=== PATIENT | female | born 1940 | race Caucasian/White ===

== ENCOUNTER → 2016-06-14 | Outpatient (CLI) | payer MEDICARE, OTHER ==
[~2016-06-14] MED LIST: ASCO250T13 PO; BIOT5TAB3 PO; CHOL100083 OR; CLON0.1T PO; CLON0.5T PO; CYANLIQ IJ; DICY20TA64 PO; DULO30CA PO; FOLITAB45 PO; LEVO200I5 IV; MAGNTAB23 PO; PERCOT GT; POTA25TA23 PO; TIZA4TAB3 PO; VITA80009 PO
== END | disposition home or self-care (01) ==
LOC: Rad HDHVI 09:25
PROVIDERS: ATTEND Internal Medicine Cardiovascular Disease
DX: I10 Essential (primary) hypertension (principal)
CPT/HCPCS: 93306; 93926

== ENCOUNTER → 2016-07-04 | Outpatient (CLI) | payer MEDICARE, OTHER | END | disposition home or self-care (01) | LOC: Rad HDHVI 12:05 | PROVIDERS: ATTEND Internal Medicine Cardiovascular Disease | DX: M16.0 Bilateral primary osteoarthritis of hip (principal); M85.88 Other specified disorders of bone density and structure, other site ==

== ENCOUNTER → 2016-09-06 | Outpatient (CLI) | payer MEDICARE, OTHER ==
[2016-09-06 16:21] LABS: BUN/Creatinine Ratio 24.7; Calcium 8.9 mg/dL (8.5-10.1); Potassium 5.2 mmol/L (3.5-5.1)
== END | disposition home or self-care (01) ==
LOC: LAB 10:36
PROVIDERS: ATTEND Internal Medicine Cardiovascular Disease
DX: I10 Essential (primary) hypertension (principal); E83.42 Hypomagnesemia; M10.9 Gout, unspecified
CPT/HCPCS: 36415; 80048; 83735; 84550

== ENCOUNTER → 2016-09-12 | Outpatient (CLI) | payer MEDICARE, OTHER ==
[2016-09-12 09:50] VITALS: BP 128/84
[2016-09-12 10:20] VITALS: BP 103/66
== END | disposition home or self-care (01) ==
LOC: CHF HDHVI 09:54
PROVIDERS: ATTEND Internal Medicine Cardiovascular Disease
DX: M81.0 Age-related osteoporosis without current pathological fracture (principal)
CPT/HCPCS: 96372; G0463

== ENCOUNTER → 2016-09-14 | Outpatient (CLI) | payer MEDICARE ==
[~2016-09-14] VITALS: Ht 157.5 cm; Wt 52.6 kg
[~2016-09-14] MED LIST changes: +ADENOSINE IV STA; +GIVE UN DILUTED IV STA
== END | disposition home or self-care (01) ==
LOC: HDHVI->DVH 08:14
PROVIDERS: ATTEND Internal Medicine Cardiovascular Disease
DX: R07.9 Chest pain, unspecified (principal); I10 Essential (primary) hypertension; F17.210 Nicotine dependence, cigarettes, uncomplicated; Z82.49 Family history of ischemic heart disease and other diseases of the circulatory system
CPT/HCPCS: 78452; 93005; 96374; 96375; A9500; J0153

== ENCOUNTER → 2016-10-24 | Outpatient (CLI) | payer MEDICARE ==
[~2016-10-24] MED LIST changes: -ADENOSINE IV STA; -GIVE UN DILUTED IV STA
[2016-10-24 12:44] LABS: BUN/Creatinine Ratio 18.3; Calcium 8.1 mg/dL (8.5-10.1); Magnesium 2.8 mg/dL (1.6-2.6); Uric Acid 3.5 mg/dL (2.6-6.0)
[2016-10-24 17:28] LABS: BUN/Creatinine Ratio 21.8; Calcium 7.9 mg/dL (8.5-10.1); Magnesium 2.7 mg/dL (1.6-2.6); Potassium 4.9 mmol/L (3.5-5.1)
== END | disposition home or self-care (01) ==
LOC: LAB 09:11
PROVIDERS: ATTEND Internal Medicine Cardiovascular Disease
DX: I10 Essential (primary) hypertension (principal); E83.42 Hypomagnesemia; M10.9 Gout, unspecified
CPT/HCPCS: 36415; 80048; 83735; 84550

== ENCOUNTER → 2016-11-06 | Outpatient (CLI) | payer MEDICARE ==
[~2016-11-06] MED LIST changes: +DICY20TA38 PO; -DICY20TA64 PO
[2016-11-06 13:12] LABS: BUN/Creatinine Ratio 25.4; Calcium 8.7 mg/dL (8.5-10.1); Magnesium 2.5 mg/dL (1.6-2.6); Potassium 3.9 mmol/L (3.5-5.1)
== END | disposition home or self-care (01) ==
LOC: LAB 10:11
PROVIDERS: ATTEND Internal Medicine Cardiovascular Disease
DX: I10 Essential (primary) hypertension (principal); E83.42 Hypomagnesemia
CPT/HCPCS: 36415; 80048; 83735

== ENCOUNTER → 2016-11-21 | Outpatient (CLI) | payer MEDICARE | END | disposition home or self-care (01) | LOC: LAB 14:51 | PROVIDERS: ATTEND Internal Medicine Cardiovascular Disease | DX: E46 Unspecified protein-calorie malnutrition (principal) | CPT/HCPCS: 36415; 82040 ==

== ENCOUNTER 2017-01-20 22:17 | Inpatient (IN) | payer MEDICARE ==
[~2017-01-20] VITALS: Ht 170.2 cm; Wt 60.5 kg
[~2017-01-20 22:17] MED LIST changes: +ALLO300T2 PO; -ASCO250T13 PO; -BIOT5TAB3 PO; -CHOL100083 OR; -CLON0.1T PO; +COLCPOW2 PO; -CYANLIQ IJ; +ESCI10TA53 PO; -FOLITAB45 PO; +FURO20TA3 PO; +LISI2.5T47 PO; -MAGNTAB23 PO; +OLAN5TAB30 PO; +PANT40TA2 PO; +RANI150C11 PO; -VITA80009 PO
[2017-01-21 00:52] LABS: Basophils # (auto) 0 uL; Basophils % (auto) 0.1 % (0.0-2.0); DEFINITIVE SEE PRINTOUT; Eosinophils # (auto) 0 uL; Hematocrit 34.6 % (36.0-46.0); Hemoglobin 11.2 g/dL (12.2-16.2); Lymphocytes # (auto) 1.5 uL; Lymphocytes % (auto) 5.3 % (10.0-50.0); Mean Corpuscular Hemoglobin 33.5 pg (28.0-32.0); Mean Corpuscular Hgb Conc. 32.3 g/dL (32.0-36.0); Mean Corpuscular Volume 103.9 fL (80.0-100.0); Mean Platelet Volume 6.9 fL (7.4-10.4); Monocytes # (auto) 0.4 uL; Monocytes % (auto) 1.4 % (0.0-12.0); Neutrophils # (auto) 25.8 uL; Neutrophils % (auto) 93.2 % (37.0-80.0); Platelet Count (auto) 277 10^3/uL (140-450); Red Cell Distribution Width 13.1 % (11.6-16.0); SUSPECT SEE PRINTOUT; White Blood Cell 27.7 10^3/uL (4.4-10.8)
[2017-01-21 01:07] LABS: Albumin 3.1 g/dL (3.4-5.0); BUN/Creatinine Ratio 14.8; Calcium 8.1 mg/dL (8.5-10.1); INR 1.1 (0.9-1.15); Magnesium 1.9 mg/dL (1.6-2.6); Partial Thromboplastin Time 28.6 sec (22.64-33.71); Potassium 3.9 mmol/L (3.5-5.1)
[2017-01-21 01:14] LABS: Bilirubin, Total 0.4 mg/dL (0.2-1.0); Total Protein 6.4 g/dL (6.4-8.2)
[2017-01-21] MEDS ORDERED: SODIUM CHLORIDE 0.9% 1,000 ML IV ONE ×2 (03:30→03:45)
[2017-01-21] MEDS ORDERED: IOHEXOL 300 MG/ML 100ML BOTTLE IJ ONE (03:43)
[2017-01-21] MEDS ORDERED: VANCOMYCIN 1GM/250ML D5W 250 ML IV ONE (03:45)
[2017-01-21] MEDS ORDERED: PIPERACILLIN-TAZOB 3.375GM 100 ML IV ONE (03:45)
[2017-01-21 04:14] LABS: Urine Bilirubin Negative (Negative); Urine Blood Negative /uL (Negative); Urine Color Yellow (Yellow); Urine Glucose Normal (Normal); Urine Hyaline Cast FEW /lpf (0 - 2); Urine Ketone Negative (Negative); Urine Mucus FEW (None Seen); Urine Nitrite Negative (Negative); Urine RBC 4 /hpf (0 - 4); Urine Urobilinogen Normal (Negative); Urine pH 6.5 (5.0-8.0)
[2017-01-21] MEDS ORDERED: LORazepam 2MG/ML-1ML VIAL ONE (04:41)
[2017-01-21] MEDS ORDERED: NITROGLYCERIN 0.4 MG SL TAB SL PRN (05:00)
[2017-01-21] MEDS ORDERED: VANCOMYCIN PER PHARMACY 0 MG IV SCH (05:00)
[2017-01-21] MEDS ORDERED: MORPHINE SULF INJ 2 MG/ML SYRINGE 1ML IV PRN ×2 (05:00→06:15)
[2017-01-21] MEDS ORDERED: LORazepam 2MG/ML-1ML VIAL IV ONE (05:15)
[2017-01-21] MEDS ORDERED: ONDANSETRON HCL 4 MG/2 ML VIAL IV PRN (06:15)
[2017-01-21] MEDS ORDERED: diphenhdrAMINE HCL 50 MG/1 ML VL IV ONE (06:15)
[2017-01-21 06:49] LABS: Temperature: 21.8 C (20.0-25.0)
[2017-01-21] MEDS: LEVOTHYROXINE SODIUM 25 MCG TAB PO SCH (07:53)
[2017-01-21] MEDS: PANTOPRAZOLE 40 MG TAB PO SCH (10:09)
[2017-01-21] MEDS: PIPERACILLIN-TAZOB 3.375GM 100 ML IV SCH ×3 (12:13→23:32)
[2017-01-21] MEDS ORDERED: ALBU2TAB4 PO (14:31)
[2017-01-21] MEDS ORDERED: ACET5SOL5 PO (14:31)
[2017-01-21] MEDS ORDERED: METO25TA5 PO (14:31)
[2017-01-21] MEDS ORDERED: MAGN400S25 PO (14:31)
[2017-01-21] MEDS ORDERED: PRE5T PO (14:31)
[2017-01-21] MEDS: VANCOMYCIN 1GM/250ML D5W 250 ML IV SCH (17:09)
[2017-01-21] MEDS: LORazepam 2MG/ML-1ML VIAL IV PRN ×3 (17:22→21:29)
[2017-01-21] MEDS ORDERED: FUROSEMIDE 20 MG TAB PO SCH (18:00)
[2017-01-21] MEDS ORDERED: ACETAMINOPHEN 650 MG RECT SUPP PR ONE ×2 (19:45→19:56)
[2017-01-21] MEDS: SODIUM CHLORIDE 0.9% 1,000 ML IV SCH (21:05)
[2017-01-22] MEDS: VANCOMYCIN 1GM/250ML D5W 250 ML IV SCH ×2 (04:36→16:54)
[2017-01-22 06:21] LABS: Basophils # (auto) 0 uL; Basophils % (auto) 0.1 % (0.0-2.0); CONDITION Y; DEFINITIVE SEE PRINTOUT; Eosinophils # (auto) 0.7 uL; Eosinophils % (auto) 5.1 % (0.0-7.0); Hematocrit 31.4 % (36.0-46.0); Hemoglobin 10.4 g/dL (12.2-16.2); Mean Corpuscular Hemoglobin 34.5 pg (28.0-32.0); Mean Corpuscular Hgb Conc. 33.3 g/dL (32.0-36.0); Mean Corpuscular Volume 103.6 fL (80.0-100.0); Mean Platelet Volume 6.8 fL (7.4-10.4); Monocytes # (auto) 0.3 uL; Monocytes % (auto) 2.1 % (0.0-12.0); Neutrophils # (auto) 12.4 uL; Neutrophils % (auto) 85.7 % (37.0-80.0); Platelet Count (auto) 271 10^3/uL (140-450); Red Cell Distribution Width 14.2 % (11.6-16.0); White Blood Cell 14.4 10^3/uL (4.4-10.8)
[2017-01-22] MEDS: PIPERACILLIN-TAZOB 3.375GM 100 ML IV SCH ×3 (06:30→18:13)
[2017-01-22] MEDS: LEVOTHYROXINE SODIUM 25 MCG TAB PO SCH (06:49)
[2017-01-22 06:51] LABS: Albumin 2.2 g/dL (3.4-5.0); BUN/Creatinine Ratio 10.3; Bilirubin, Total 0.4 mg/dL (0.2-1.0); Calcium 7.3 mg/dL (8.5-10.1); Total Protein 5.3 g/dL (6.4-8.2)
[2017-01-22] MEDS: SODIUM CHLORIDE 0.9% 1,000 ML IV SCH (07:50)
[2017-01-22] MEDS: PANTOPRAZOLE 40 MG TAB PO SCH (11:03)
[2017-01-22 20:00] VITALS: BP 144/69
[2017-01-22] MEDS: HYDROcodone-ACET 5/325MG TAB PO PRN (20:10)
[2017-01-22 22:00] VITALS: BP 144/69
[2017-01-23] MEDS: SODIUM CHLORIDE 0.9% 1,000 ML IV SCH ×2 (00:42→14:55)
[2017-01-23] MEDS: PIPERACILLIN-TAZOB 3.375GM 100 ML IV SCH ×4 (00:42→18:27)
[2017-01-23] MEDS: HYDROcodone-ACET 5/325MG TAB PO PRN ×4 (02:16→21:59)
[2017-01-23] MEDS: LEVOTHYROXINE SODIUM 25 MCG TAB PO SCH (05:56)
[2017-01-23 06:18] LABS: Basophils # (auto) 0 uL; Basophils % (auto) 0.1 % (0.0-2.0); CONDITION Y; DEFINITIVE SEE PRINTOUT; Eosinophils # (auto) 1.6 uL; Hematocrit 31.4 % (36.0-46.0); Hemoglobin 10.4 g/dL (12.2-16.2); Lymphocytes # (auto) 1.1 uL; Lymphocytes % (auto) 8.9 % (10.0-50.0); Mean Corpuscular Hemoglobin 34.1 pg (28.0-32.0); Mean Corpuscular Hgb Conc. 33.3 g/dL (32.0-36.0); Mean Corpuscular Volume 102.3 fL (80.0-100.0); Mean Platelet Volume 7.7 fL (7.4-10.4); Monocytes # (auto) 0.4 uL; Monocytes % (auto) 2.9 % (0.0-12.0); Neutrophils # (auto) 9.3 uL; Neutrophils % (auto) 75.1 % (37.0-80.0); Platelet Count (auto) 257 10^3/uL (140-450); Red Cell Distribution Width 14.4 % (11.6-16.0); White Blood Cell 12.4 10^3/uL (4.4-10.8)
[2017-01-23 06:39] LABS: Potassium 3.2 mmol/L (3.5-5.1)
[2017-01-23 06:42] LABS: Bilirubin, Total 0.4 mg/dL (0.2-1.0); Total Protein 4.9 g/dL (6.4-8.2)
[2017-01-23 08:00] VITALS: BP 135/72
[2017-01-23] MEDS: PANTOPRAZOLE 40 MG TAB PO SCH (10:16)
[2017-01-23 13:00] VITALS: BP 142/80
[2017-01-23] MEDS ORDERED: POTASSIUM CHL 20 Meq TABLET PO ONE (15:00)
[2017-01-23] MEDS ORDERED: CYANOCOBALAMIN (B-12) 1000 MCG/1 ML VIAL IM ONE (15:45)
[2017-01-23 17:00] VITALS: BP 154/78
[2017-01-23] MEDS: PRO-STAT 64 30ML PO SCH (18:27)
[2017-01-23] MEDS: BOOST PLUS 8 ounce PO SCH (18:27)
[2017-01-23 22:00] VITALS: BP 168/77
[2017-01-23] MEDS: clonazePAM 0.5 MG TAB PO PRN (22:33)
[2017-01-24] MEDS: PIPERACILLIN-TAZOB 3.375GM 100 ML IV SCH ×4 (00:15→17:21)
[2017-01-24] MEDS: HYDROcodone-ACET 5/325MG TAB PO PRN ×3 (05:35→17:52)
[2017-01-24 05:37] VITALS: BP 146/80
[2017-01-24 05:43] LABS: Basophils # (auto) 0 uL; Basophils % (auto) 0.1 % (0.0-2.0); CONDITION Y; DEFINITIVE SEE PRINTOUT; Eosinophils # (auto) 1.5 uL; Eosinophils % (auto) 11.7 % (0.0-7.0); Hematocrit 31.7 % (36.0-46.0); Hemoglobin 10.6 g/dL (12.2-16.2); Lymphocytes # (auto) 1.2 uL; Lymphocytes % (auto) 9.7 % (10.0-50.0); Mean Corpuscular Hemoglobin 33.8 pg (28.0-32.0); Mean Corpuscular Hgb Conc. 33.3 g/dL (32.0-36.0); Mean Corpuscular Volume 101.3 fL (80.0-100.0); Mean Platelet Volume 7.4 fL (7.4-10.4); Monocytes # (auto) 0.6 uL; Monocytes % (auto) 4.9 % (0.0-12.0); Neutrophils # (auto) 9.5 uL; Neutrophils % (auto) 73.6 % (37.0-80.0); Platelet Count (auto) 255 10^3/uL (140-450); Red Cell Distribution Width 14.2 % (11.6-16.0); White Blood Cell 12.9 10^3/uL (4.4-10.8)
[2017-01-24 05:57] LABS: Calcium 7.4 mg/dL (8.5-10.1); Magnesium 1.9 mg/dL (1.6-2.6); Potassium 3.2 mmol/L (3.5-5.1)
[2017-01-24] MEDS: LEVOTHYROXINE SODIUM 25 MCG TAB PO SCH (07:13)
[2017-01-24 08:00] VITALS: BP 157/79
[2017-01-24] MEDS: SODIUM CHLORIDE 0.9% 1,000 ML IV SCH (08:18)
[2017-01-24] MEDS: BOOST PLUS 8 ounce PO SCH ×3 (08:18→17:21)
[2017-01-24] MEDS: PRO-STAT 64 30ML PO SCH ×2 (08:18→17:21)
[2017-01-24 08:59] VITALS: BP 157/79
[2017-01-24] MEDS: CYANOCOBALAMIN 500 MCG TAB PO SCH (10:20)
[2017-01-24] MEDS: PANTOPRAZOLE 40 MG TAB PO SCH (10:20)
[2017-01-24] MEDS: clonazePAM 0.5 MG TAB PO PRN ×2 (10:26→21:49)
[2017-01-24] MEDS ORDERED: METOPROLOL TARTRATE 25 MG TAB PO ONE (11:30)
[2017-01-24] MEDS ORDERED: POTASSIUM CHL 20 Meq TABLET PO ONE (11:30)
[2017-01-24] MEDS ORDERED: MAGNESIUM SULFATE 1GM/100ML 100 ML IV ONE (11:30)
[2017-01-24 12:44] VITALS: BP 135/91
[2017-01-24] MEDS ORDERED: MULTIPLE VITAMINS W/ MINERALS TAB PO ONE (13:15)
[2017-01-24] MEDS ORDERED: ASCORBIC ACID 500 MG TAB PO ONE (13:15)
[2017-01-24 17:00] VITALS: BP 158/78
[2017-01-24] MEDS: METOPROLOL TARTRATE 25 MG TAB PO SCH (21:48)
[2017-01-24] MEDS: ASCORBIC ACID 500 MG TAB PO SCH (21:49)
[2017-01-24 22:00] VITALS: BP 157/76
[2017-01-25] MEDS: PIPERACILLIN-TAZOB 3.375GM 100 ML IV SCH ×2 (00:15→06:22)
[2017-01-25] MEDS: LORazepam 2MG/ML-1ML VIAL IV PRN (00:15)
[2017-01-25 05:30] VITALS: BP 133/78
[2017-01-25 05:43] LABS: Basophils # (auto) 0 uL; CONDITION Y; DEFINITIVE SEE PRINTOUT; Eosinophils # (auto) 1.8 uL; Eosinophils % (auto) 13.9 % (0.0-7.0); Hematocrit 32.7 % (36.0-46.0); Hemoglobin 10.7 g/dL (12.2-16.2); Lymphocytes # (auto) 1.8 uL; Lymphocytes % (auto) 14.1 % (10.0-50.0); Mean Corpuscular Hemoglobin 33.3 pg (28.0-32.0); Mean Corpuscular Hgb Conc. 32.7 g/dL (32.0-36.0); Mean Corpuscular Volume 101.9 fL (80.0-100.0); Mean Platelet Volume 7.4 fL (7.4-10.4); Monocytes # (auto) 0.6 uL; Monocytes % (auto) 4.8 % (0.0-12.0); Neutrophils # (auto) 8.8 uL; Neutrophils % (auto) 67.2 % (37.0-80.0); Platelet Count (auto) 357 10^3/uL (140-450); Red Cell Distribution Width 14.6 % (11.6-16.0); White Blood Cell 13.1 10^3/uL (4.4-10.8)
[2017-01-25 05:50] LABS: Magnesium 2.2 mg/dL (1.6-2.6)
[2017-01-25] MEDS: HYDROcodone-ACET 5/325MG TAB PO PRN ×3 (06:22→21:51)
[2017-01-25] MEDS: LEVOTHYROXINE SODIUM 25 MCG TAB PO SCH (06:23)
[2017-01-25] MEDS: BOOST PLUS 8 ounce PO SCH ×3 (07:47→17:47)
[2017-01-25] MEDS: PRO-STAT 64 30ML PO SCH ×2 (07:47→17:47)
[2017-01-25 09:00] VITALS: BP 149/86
[2017-01-25] MEDS: PANTOPRAZOLE 40 MG TAB PO SCH (09:39)
[2017-01-25] MEDS: CYANOCOBALAMIN 500 MCG TAB PO SCH (09:39)
[2017-01-25] MEDS: MULTIPLE VITAMINS W/ MINERALS TAB PO SCH (09:39)
[2017-01-25] MEDS: ASCORBIC ACID 500 MG TAB PO SCH ×2 (09:39→21:51)
[2017-01-25] MEDS: METOPROLOL TARTRATE 25 MG TAB PO SCH ×2 (09:40→21:50)
[2017-01-25] MEDS ORDERED: SACC250C PO (12:49)
[2017-01-25] MEDS ORDERED: CLIN1CAP4 PO (12:49)
[2017-01-25 13:00] VITALS: BP 155/92
[2017-01-25] MEDS: CLINDAMYCIN HCL 150 MG CAP PO SCH ×2 (13:41→21:50)
[2017-01-25] MEDS: clonazePAM 0.5 MG TAB PO PRN (16:52)
[2017-01-25 17:00] VITALS: BP 158/85
[2017-01-25] MEDS: ACETAMINOPHEN 500 MG TAB PO PRN (18:26)
[2017-01-25 20:00] VITALS: BP 168/76
[2017-01-25 22:11] VITALS: BP 168/76
[2017-01-26] VITALS (7 sets, daily range): BP systolic 124–184; BP diastolic 62–95
[2017-01-26] MEDS: clonazePAM 0.5 MG TAB PO PRN ×3 (02:38→21:46)
[2017-01-26] MEDS: HYDROcodone-ACET 5/325MG TAB PO PRN ×3 (06:27→23:16)
[2017-01-26] MEDS: LEVOTHYROXINE SODIUM 25 MCG TAB PO SCH (06:27)
[2017-01-26] MEDS: CLINDAMYCIN HCL 150 MG CAP PO SCH ×3 (06:27→21:44)
[2017-01-26] MEDS: BOOST PLUS 8 ounce PO SCH ×3 (08:00→18:00)
[2017-01-26] MEDS: PRO-STAT 64 30ML PO SCH ×2 (08:00→18:00)
[2017-01-26] MEDS: MULTIPLE VITAMINS W/ MINERALS TAB PO SCH (10:17)
[2017-01-26] MEDS: METOPROLOL TARTRATE 25 MG TAB PO SCH ×2 (10:17→21:45)
[2017-01-26] MEDS: PANTOPRAZOLE 40 MG TAB PO SCH (10:18)
[2017-01-26] MEDS: ASCORBIC ACID 500 MG TAB PO SCH ×2 (10:18→21:45)
[2017-01-26] MEDS: ACETAMINOPHEN 500 MG TAB PO PRN (12:58)
[2017-01-26] MEDS: CYANOCOBALAMIN 500 MCG TAB PO SCH (17:28)
[2017-01-26] MEDS: FLORASTOR (S. BOULARDII) 250 MG CAP PO SCH (17:28)
[2017-01-26] MEDS ORDERED: METOPROLOL TARTRATE 25 MG TAB PO ONE (18:15)
[2017-01-27 05:10] VITALS: BP 158/80
[2017-01-27] MEDS: LEVOTHYROXINE SODIUM 25 MCG TAB PO SCH (06:15)
[2017-01-27] MEDS: HYDROcodone-ACET 5/325MG TAB PO PRN (06:15)
[2017-01-27] MEDS: CLINDAMYCIN HCL 150 MG CAP PO SCH (06:15)
[2017-01-27 08:00] VITALS: BP 155/78
[2017-01-27] MEDS: BOOST PLUS 8 ounce PO SCH ×2 (08:00→12:00)
[2017-01-27] MEDS: PRO-STAT 64 30ML PO SCH (08:00)
[2017-01-27] MEDS: clonazePAM 0.5 MG TAB PO PRN (08:18)
[2017-01-27 08:24] VITALS: BP 155/78
[2017-01-27] MEDS: FLORASTOR (S. BOULARDII) 250 MG CAP PO SCH (10:30)
[2017-01-27] MEDS: PANTOPRAZOLE 40 MG TAB PO SCH (10:30)
[2017-01-27] MEDS: ASCORBIC ACID 500 MG TAB PO SCH (10:31)
[2017-01-27] MEDS: CYANOCOBALAMIN 500 MCG TAB PO SCH (10:32)
[2017-01-27] MEDS: MULTIPLE VITAMINS W/ MINERALS TAB PO SCH (10:32)
[2017-01-27] MEDS: METOPROLOL TARTRATE 25 MG TAB PO SCH (10:33)
[2017-01-27 12:30] VITALS: BP 166/90
== END 2017-01-27 13:45 | DRG 871 ==
LOC: ER 22:23 → TELE 22:24 → TELE-WESTW 01-22 18:33 → WEST WING 01-25 16:49
PROVIDERS: ADMIT Nurse Practitioner Family; ATTEND Internal Medicine
DX: A41.9 Sepsis, unspecified organism (principal); G92 Toxic encephalopathy; L03.115 Cellulitis of right lower limb; E88.09 Other disorders of plasma-protein metabolism, not elsewhere classified; D50.9 Iron deficiency anemia, unspecified; F17.210 Nicotine dependence, cigarettes, uncomplicated; I12.9 Hypertensive chronic kidney disease with stage 1 through stage 4 chronic kidney disease, or unspecified chronic kidney disease; G62.9 Polyneuropathy, unspecified; J44.9 Chronic obstructive pulmonary disease, unspecified; F32.9 Major depressive disorder, single episode, unspecified; K59.00 Constipation, unspecified; G47.00 Insomnia, unspecified; E03.9 Hypothyroidism, unspecified; E87.6 Hypokalemia; F41.9 Anxiety disorder, unspecified; G89.4 Chronic pain syndrome; N18.9 Chronic kidney disease, unspecified; M48.00 Spinal stenosis, site unspecified; Z79.899 Other long term (current) drug therapy; Z98.84 Bariatric surgery status; Z90.49 Acquired absence of other specified parts of digestive tract; Z90.710 Acquired absence of both cervix and uterus; Z87.01 Personal history of pneumonia (recurrent); Z71.3 Dietary counseling and surveillance
CPT/HCPCS: 36415; 51702; 70450; 71010; 74177; 80048; 80053; 80202; 81001; 82607; 82746; 82784; 82962; 83036; 83605; 83735; 83880; 84132; 84443; 84484; 85025; 85610; 85730; 86334; 87040; 87081; 87493; 94761; 95819; 96361; 96365; 96366; 96375; 97116; 97530; J2543

== ENCOUNTER → 2017-05-15 | Outpatient (CLI) | payer MEDICARE ==
[~2017-05-15] MED LIST changes: +ACET5SOL5 PO; +ALBU2TAB4 PO; +CLIN1CAP4 PO; +MAGN400S25 PO; +METO25TA5 PO; +PRE5T PO; +SACC250C PO
[2017-05-15 09:18] LABS: Basophils # (auto) 0 uL; Basophils % (auto) 0.1 % (0.0-2.0); Eosinophils # (auto) 0.2 uL; Eosinophils % (auto) 1.8 % (0.0-7.0); Hematocrit 39.2 % (36.0-46.0); Hemoglobin 12.8 g/dL (12.2-16.2); Lymphocytes # (auto) 1.8 uL; Lymphocytes % (auto) 17.3 % (10.0-50.0); Mean Corpuscular Hemoglobin 29.6 pg (28.0-32.0); Mean Corpuscular Hgb Conc. 32.6 g/dL (32.0-36.0); Mean Corpuscular Volume 90.7 fL (80.0-100.0); Mean Platelet Volume 6.6 fL (6.9-10.8); Monocytes # (auto) 0.5 uL; Monocytes % (auto) 4.9 % (0.0-12.0); Neutrophils # (auto) 7.7 uL; Neutrophils % (auto) 75.9 % (37.0-80.0); Platelet Count (auto) 376 10^3/uL (140-450); White Blood Cell 10.1 10^3/uL (4.4-10.8)
[2017-05-15 09:26] LABS: Urine Bilirubin Negative (Negative); Urine Blood Negative /uL (Negative); Urine Color Yellow (Yellow); Urine Glucose Normal (Normal); Urine Ketone Negative (Negative); Urine Nitrite Negative (Negative); Urine RBC <1 /hpf (0 - 4); Urine Squamous Epithelial Cell FEW /hpf (<5); Urine Urobilinogen Normal (Negative)
[2017-05-15 09:57] LABS: Albumin 3.4 g/dL (3.4-5.0); Bilirubin, Total 0.2 mg/dL (0.2-1.0); Calcium 9.7 mg/dL (8.5-10.1); Potassium 4.2 mmol/L (3.5-5.1); Total Protein 8.3 g/dL (6.4-8.2)
[2017-05-15 09:59] LABS: Temperature: 23.1 C (20.0-25.0)
== END | disposition home or self-care (01) ==
LOC: LAB 08:40
PROVIDERS: ATTEND Family Medicine
DX: I10 Essential (primary) hypertension (principal); E78.5 Hyperlipidemia, unspecified; E55.9 Vitamin D deficiency, unspecified
CPT/HCPCS: 36415; 80053; 80061; 81001; 82306; 82607; 82746; 85025

== ENCOUNTER → 2017-06-18 | Outpatient (CLI) | payer MEDICARE ==
[2017-06-18 13:21] LABS: INR 0.97 (0.9-1.15); Partial Thromboplastin Time 26.7 sec (22.64-33.71); Prothrombin Time 10.6 sec (9.37-12.3)
== END | disposition home or self-care (01) ==
LOC: LAB 12:41
PROVIDERS: ATTEND Family Medicine
DX: H35.60 Retinal hemorrhage, unspecified eye (principal)
CPT/HCPCS: 36415; 85610; 85730

== ENCOUNTER → 2018-03-04 | Outpatient (CLI) | payer MEDICARE ==
[2018-03-04 08:27] LABS: Basophils # (auto) 0 uL; Basophils % (auto) 0.3 % (0.0-2.0); Eosinophils # (auto) 0.2 uL; Eosinophils % (auto) 2.6 % (0.0-7.0); Hematocrit 40.5 % (36.0-46.0); Hemoglobin 13.7 g/dL (12.2-16.2); Lymphocytes # (auto) 1.9 uL; Lymphocytes % (auto) 27.9 % (10.0-50.0); Mean Corpuscular Hemoglobin 33.2 pg (28.0-32.0); Mean Corpuscular Hgb Conc. 33.8 g/dL (32.0-36.0); Monocytes # (auto) 0.5 uL; Monocytes % (auto) 7.1 % (0.0-12.0); Neutrophils # (auto) 4.2 uL; Neutrophils % (auto) 62.1 % (37.0-80.0); Nucleated Red Blood Cells % 0.1 %; Platelet Count (auto) 223 10^3/uL (140-450); Red Blood Cells 4.14 10^6/uL (4.0-5.20); Red Cell Distribution Width 13.6 % (11.8-14.3); White Blood Cell 6.8 10^3/uL (4.4-10.8)
[2018-03-04 08:34] LABS: Urine Bacteria NONE SEEN /hpf (None Seen); Urine Blood Negative /uL (Negative); Urine Specific Gravity 1.009 (1.001-1.035); Urine WBC <1 /hpf (0 - 5)
[2018-03-04 17:54] LABS: Calcium 8.5 mg/dL (8.5-10.1)
[2018-03-04 18:00] LABS: BUN/Creatinine Ratio 7.7; Total Protein 7.3 g/dL (6.4-8.2)
[2018-03-04 18:06] LABS: Bilirubin, Total 0.4 mg/dL (0.2-1.0)
== END | disposition home or self-care (01) ==
LOC: LAB 07:57
PROVIDERS: ATTEND Nurse Practitioner
DX: E78.5 Hyperlipidemia, unspecified (principal)
CPT/HCPCS: 36415; 80053; 80061; 81001; 82607; 84443; 85025

== ENCOUNTER → 2018-07-18 | Outpatient (CLI) | payer MEDICARE ==
[2018-07-18 09:21] LABS: Basophils # (auto) 0 uL; Basophils % (auto) 0.3 % (0.0-2.0); Eosinophils # (auto) 0.1 uL; Lymphocytes # (auto) 1.6 uL; Monocytes # (auto) 0.4 uL; Monocytes % (auto) 6.5 % (0.0-12.0)
[2018-07-18 09:23] LABS: Eosinophils % (auto) 1.8 % (0.0-7.0); Hematocrit 43.2 % (36.0-46.0); Hemoglobin 14.5 g/dL (12.2-16.2); Mean Corpuscular Hemoglobin 34.2 pg (28.0-32.0); Mean Corpuscular Hgb Conc. 33.6 g/dL (32.0-36.0); Mean Corpuscular Volume 101.8 fL (80.0-100.0); Neutrophils # (auto) 4.5 uL; Neutrophils % (auto) 67.4 % (37.0-80.0); Platelet Count (auto) 255 10^3/uL (140-450); Red Blood Cells 4.25 10^6/uL (4.0-5.20); Red Cell Distribution Width 14.3 % (11.8-14.3); White Blood Cell 6.7 10^3/uL (4.4-10.8)
[2018-07-18 09:24] LABS: Urine Bacteria NONE SEEN /hpf (None Seen); Urine Blood Negative /uL (Negative); Urine Specific Gravity 1.008 (1.001-1.035); Urine WBC 3 /hpf (0 - 5)
[2018-07-18 09:26] LABS: Potassium 4.4 mmol/L (3.5-5.1)
[2018-07-18 09:37] LABS: Albumin 4.4 g/dL (3.4-5.0); BUN/Creatinine Ratio 13.6; Bilirubin, Total 0.4 mg/dL (0.2-1.0); Calcium 9.6 mg/dL (8.5-10.1)
[2018-07-18 09:38] LABS: Uric Acid 4.2 mg/dL (2.6-6.0)
== END | disposition home or self-care (01) ==
LOC: LAB 08:27
PROVIDERS: ATTEND Nurse Practitioner
DX: E78.5 Hyperlipidemia, unspecified (principal); J44.9 Chronic obstructive pulmonary disease, unspecified; Z79.899 Other long term (current) drug therapy
CPT/HCPCS: 36415; 80053; 80061; 81001; 82306; 83036; 84443; 84550; 85025

== ENCOUNTER 2018-10-24 08:51 | Inpatient (IN) | payer MEDICARE, OTHER | END 2018-11-15 16:00 | disposition other institution (70) | LOC: ICU WEST 10-30 18:24 → DOU 11-05 13:31 → TELE-WESTW 11-12 20:34 → WEST WING 11-15 09:44 → TELE-EAST 10-27 10:38 → DOU IN ICU 11-05 13:33 → ER 08:51 → TELE-EAST 11:04 | PROC: 0BNL0ZZ Release Left Lung, Open Approach (ICD-10-PCS; principal; 2018-10-30 14:31) | PROC: 0W9B00Z Drainage of Left Pleural Cavity with Drainage Device, Open Approach (ICD-10-PCS; 2018-10-30 14:31) | PROC: 4A12XM4 Monitoring of Cardiac Stress, External Approach (ICD-10-PCS; 2018-10-30 14:31) | PROC: 3E033HZ Introduction of Radioactive Substance into Peripheral Vein, Percutaneous Approach (ICD-10-PCS; 2018-10-30 14:31) | PROC: 5A1945Z Respiratory Ventilation, 24-96 Consecutive Hours (ICD-10-PCS; 2018-10-30 14:31) | PROC: 0BH17EZ Insertion of Endotracheal Airway into Trachea, Via Natural or Artificial Opening (ICD-10-PCS; 2018-10-30 14:31) | PROC: 02HV33Z Insertion of Infusion Device into Superior Vena Cava, Percutaneous Approach (ICD-10-PCS; 2018-10-30 14:31) | PROC: 5A1945Z Respiratory Ventilation, 24-96 Consecutive Hours (ICD-10-PCS; 2018-10-30 14:31) | PROC: 0BH17EZ Insertion of Endotracheal Airway into Trachea, Via Natural or Artificial Opening (ICD-10-PCS; 2018-10-30 14:31) | PROC: 0BBL0ZZ Excision of Left Lung, Open Approach (ICD-10-PCS; 2018-10-30 14:31) | DX: A41.9 Sepsis, unspecified organism (principal); J18.9 Pneumonia, unspecified organism; N17.0 Acute kidney failure with tubular necrosis; J86.9 Pyothorax without fistula; J96.00 Acute respiratory failure, unspecified whether with hypoxia or hypercapnia; E46 Unspecified protein-calorie malnutrition; J90 Pleural effusion, not elsewhere classified; J44.0 Chronic obstructive pulmonary disease with (acute) lower respiratory infection; E87.1 Hypo-osmolality and hyponatremia; N39.0 Urinary tract infection, site not specified; E03.9 Hypothyroidism, unspecified; F32.9 Major depressive disorder, single episode, unspecified; F41.9 Anxiety disorder, unspecified; F03.90 Unspecified dementia, unspecified severity, without behavioral disturbance, psychotic disturbance, mood disturbance, and anxiety; I10 Essential (primary) hypertension; I20.9 Angina pectoris, unspecified; G89.4 Chronic pain syndrome; M48.061 Spinal stenosis, lumbar region without neurogenic claudication; M19.90 Unspecified osteoarthritis, unspecified site; M10.9 Gout, unspecified; J44.9 Chronic obstructive pulmonary disease, unspecified; J98.01 Acute bronchospasm; M54.16 Radiculopathy, lumbar region; D64.9 Anemia, unspecified; E87.6 Hypokalemia ==

== ENCOUNTER → 2019-03-13 | Outpatient (CLI) | payer MEDICARE, OTHER ==
[~2019-03-13] MED LIST changes: +ACET-1156 PO; -ACET5SOL5 PO; +ALBU0.084 NEB; +ALBU1AER4 IN; -ALBU2TAB4 PO; +CHOL20007 OR; +CITA-30 PO; -CLIN1CAP4 PO; +CYA100I PO; -DICY20TA38 PO; +DOCU100T15 PO; -DULO30CA PO; -ESCI10TA53 PO; -FURO20TA3 PO; +HYDR12.56 PO; +IBUP200C3 PO; +LACT10SO3 PO; -LEVO200I5 IV; -LISI2.5T47 PO; +MAGN200T9 PO; +MECL1TAB42 PO; -PANT40TA2 PO; -PERCOT GT; -POTA25TA23 PO; -PRE5T PO; -RANI150C11 PO; +RIS1T PO; -SACC250C PO; -TIZA4TAB3 PO; +VALE250C PO
[2019-03-13 10:55] LABS: Basophils # (auto) 0 uL; Basophils % (auto) 0.2 % (0.0-2.0); Eosinophils # (auto) 0.1 uL; Eosinophils % (auto) 1.3 % (0.0-7.0); Hematocrit 39.4 % (36.0-46.0); Hemoglobin 13.1 g/dL (12.2-16.2); Lymphocytes # (auto) 2.8 uL; Lymphocytes % (auto) 24.2 % (10.0-50.0); Mean Corpuscular Hemoglobin 32.6 pg (28.0-32.0); Mean Corpuscular Hgb Conc. 33.2 g/dL (32.0-36.0); Mean Corpuscular Volume 98.3 fL (80.0-100.0); Monocytes # (auto) 0.8 uL; Neutrophils # (auto) 7.7 uL; Neutrophils % (auto) 67.3 % (37.0-80.0); Platelet Count (auto) 277 10^3/uL (140-450); Red Blood Cells 4.01 10^6/uL (4.0-5.20); Red Cell Distribution Width 15.4 % (11.8-14.3); White Blood Cell 11.5 10^3/uL (4.4-10.8)
[2019-03-13 11:44] LABS: Albumin 3.9 g/dL (3.4-5.0); Calcium 9.1 mg/dL (8.5-10.1); Magnesium 2.2 mg/dL (1.6-2.6); Potassium 3.8 mmol/L (3.5-5.1)
[2019-03-13 11:47] LABS: BUN/Creatinine Ratio 20.9; Bilirubin, Total 0.2 mg/dL (0.2-1.0); Total Protein 7.9 g/dL (6.4-8.2)
== END | disposition home or self-care (01) ==
LOC: LAB 10:03
PROVIDERS: ATTEND Internal Medicine Rheumatology
DX: E03.9 Hypothyroidism, unspecified (principal); I12.9 Hypertensive chronic kidney disease with stage 1 through stage 4 chronic kidney disease, or unspecified chronic kidney disease; N18.3 Chronic kidney disease, stage 3 (moderate); M81.0 Age-related osteoporosis without current pathological fracture; E83.42 Hypomagnesemia
CPT/HCPCS: 36415; 80053; 83735; 83970; 84443; 85025

== ENCOUNTER → 2021-05-16 | Outpatient (CLI) | payer MEDICARE ==
[~2021-05-16] MED LIST changes: -CITA-30 PO; +CITA20TA9 PO; +OLAN1TAB7 PO; -OLAN5TAB30 PO
[2021-05-16 12:29] LABS: Bilirubin, Total 0.3 mg/dL (0.2-1.0); Potassium 4.4 mmol/L (3.5-5.1)
[2021-05-16 12:30] LABS: Albumin 3.8 g/dL (3.4-5.0)
== END | disposition home or self-care (01) ==
LOC: LAB 10:25
PROVIDERS: ATTEND Internal Medicine Rheumatology
DX: M81.0 Age-related osteoporosis without current pathological fracture (principal); N18.30 Chronic kidney disease, stage 3 unspecified
CPT/HCPCS: 36415; 80053

== ENCOUNTER → 2021-06-09 | Outpatient (CLI) | payer MEDICARE ==
[2021-06-09 10:48] LABS: Basophils # (auto) 0.1 10 ^3/uL (0-0.2); Eosinophils # (auto) 0.1 10 ^3/uL (0-0.8); Mean Corpuscular Hemoglobin 34.3 pg (28.0-32.0); Nucleated Red Blood Cells % 0.1 %
[2021-06-09 10:51] LABS: Basophils % (auto) 1.1 % (0.0-2.0); Eosinophils % (auto) 1.5 % (0.0-7.0); Hematocrit 40.8 % (36.0-46.0); Hemoglobin 13.6 g/dL (12.2-16.2); Lymphocytes # (auto) 1.9 10 ^3/uL (0.4-5.4); Lymphocytes % (auto) 21.3 % (10.0-50.0); Mean Corpuscular Hgb Conc. 33.4 g/dL (32.0-36.0); Mean Corpuscular Volume 102.7 fL (80.0-100.0); Monocytes # (auto) 0.5 10 ^3/uL (0-1.3); Monocytes % (auto) 5.2 % (0.0-12.0); Neutrophils # (auto) 6.4 10 ^3/uL (1.6-8.6); Neutrophils % (auto) 70.9 % (37.0-80.0); Red Blood Cells 3.97 10^6/uL (4.0-5.20); Red Cell Distribution Width 13.3 % (11.8-14.3); White Blood Cell 9.1 10^3/uL (4.4-10.8)
[2021-06-09 11:08] LABS: Urine Bacteria NONE SEEN /hpf (None Seen); Urine Blood Negative /uL (Negative); Urine Hyaline Cast FEW /lpf (0 - 2); Urine Specific Gravity 1.018 (1.001-1.035); Urine WBC 2 /hpf (0 - 5)
[2021-06-09 11:09] LABS: INR 1.02 (0.9-1.15); Partial Thromboplastin Time 26.8 sec (23.6-33.0)
[2021-06-09 12:05] LABS: Potassium 4.8 mmol/L (3.5-5.1)
[2021-06-09 12:12] LABS: BUN/Creatinine Ratio 31.1; Calcium 9.4 mg/dL (8.5-10.1)
== END | disposition home or self-care (01) ==
LOC: LAB 09:28
PROVIDERS: ATTEND Anesthesiology Pain Medicine
DX: R79.1 Abnormal coagulation profile (principal); Z79.01 Long term (current) use of anticoagulants
CPT/HCPCS: 36415; 80048; 81001; 85025; 85610; 85730

== ENCOUNTER → 2021-07-19 | Outpatient (CLI) | payer MEDICARE ==
[2021-07-19 07:50] LABS: Urine Bacteria NONE SEEN /hpf (None Seen); Urine Blood Negative /uL (Negative); Urine Specific Gravity 1.018 (1.001-1.035); Urine WBC 8 /hpf (0 - 5)
[2021-07-19 11:20] LABS: Lymphocytes # (auto) 2.2 10 ^3/uL (0.4-5.4); Monocytes # (auto) 0.6 10 ^3/uL (0-1.3); Nucleated Red Blood Cells % 0.1 %
[2021-07-19 11:27] LABS: Basophils # (auto) 0.1 10 ^3/uL (0-0.2); Basophils % (auto) 0.7 % (0.0-2.0); Eosinophils # (auto) 0.4 10 ^3/uL (0-0.8); Eosinophils % (auto) 5.2 % (0.0-7.0); Hematocrit 42.7 % (36.0-46.0); Hemoglobin 14.3 g/dL (12.2-16.2); Lymphocytes % (auto) 28.1 % (10.0-50.0); Mean Corpuscular Hemoglobin 34.1 pg (28.0-32.0); Mean Corpuscular Hgb Conc. 33.4 g/dL (32.0-36.0); Mean Corpuscular Volume 102.2 fL (80.0-100.0); Monocytes % (auto) 7.6 % (0.0-12.0); Neutrophils # (auto) 4.7 10 ^3/uL (1.6-8.6); Neutrophils % (auto) 58.4 % (37.0-80.0); Red Blood Cells 4.18 10^6/uL (4.0-5.20); Red Cell Distribution Width 13.7 % (11.8-14.3)
[2021-07-19 12:36] LABS: Albumin 4.2 g/dL (3.4-5.0); BUN/Creatinine Ratio 30.4; Bilirubin, Total 0.5 mg/dL (0.2-1.0); Calcium 9.1 mg/dL (8.5-10.1); Total Protein 7.6 g/dL (6.4-8.2)
== END | disposition home or self-care (01) ==
LOC: LAB 07:14
PROVIDERS: ATTEND Nurse Practitioner
DX: I10 Essential (primary) hypertension (principal); E78.5 Hyperlipidemia, unspecified; E03.9 Hypothyroidism, unspecified; R30.0 Dysuria
CPT/HCPCS: 36415; 80053; 80061; 81001; 84443; 85025; 87086

== ENCOUNTER → 2022-09-19 | Outpatient (CLI) | payer MEDICARE, OTHER ==
[2022-09-19 08:31] LABS: Basophils # (auto) 0 10 ^3/uL (0-0.2); Basophils % (auto) 0.2 % (0.0-2.0); Eosinophils # (auto) 0.1 10 ^3/uL (0-0.8); Eosinophils % (auto) 1.4 % (0.0-7.0); Hematocrit 43.8 % (36.0-46.0); Hemoglobin 14.7 g/dL (12.2-16.2); Lymphocytes # (auto) 1.6 10 ^3/uL (0.4-5.4); Lymphocytes % (auto) 15.7 % (10.0-50.0); Mean Corpuscular Hemoglobin 33.9 pg (28.0-32.0); Mean Corpuscular Hgb Conc. 33.5 g/dL (32.0-36.0); Monocytes # (auto) 0.6 10 ^3/uL (0-1.3); Monocytes % (auto) 5.7 % (0.0-12.0); Neutrophils # (auto) 7.8 10 ^3/uL (1.6-8.6); Nucleated Red Blood Cells % 0.1 %; Red Blood Cells 4.34 10^6/uL (4.0-5.20); Red Cell Distribution Width 13.5 % (11.8-14.3); White Blood Cell 10.1 10^3/uL (4.4-10.8)
[2022-09-19 08:32] LABS: Urine Bacteria NONE SEEN /hpf (None Seen); Urine Blood Negative /uL (Negative); Urine Specific Gravity 1.015 (1.001-1.035); Urine WBC 9 /hpf (0 - 5)
[2022-09-19 09:30] LABS: Albumin 3.7 g/dL (3.4-5.0); Calcium 9.8 mg/dL (8.5-10.1); Potassium 3.9 mmol/L (3.5-5.1)
[2022-09-19 09:37] LABS: BUN/Creatinine Ratio 22.5 (10.0-20.0); Bilirubin, Total 0.4 mg/dL (0.2-1.0); Total Protein 8.1 g/dL (6.4-8.2)
== END | disposition home or self-care (01) ==
LOC: LAB 08:04
PROVIDERS: ATTEND Nurse Practitioner
DX: I10 Essential (primary) hypertension (principal); E03.9 Hypothyroidism, unspecified; E78.5 Hyperlipidemia, unspecified; M81.8 Other osteoporosis without current pathological fracture
CPT/HCPCS: 36415; 80053; 80061; 81001; 82306; 84443; 85025

== ENCOUNTER → 2023-08-13 | Outpatient (CLI) | payer MEDICARE ==
[~2023-08-13] MED LIST changes: -ACET-1156 PO; +ACET-1881 PO; +CLON-1003 PO; -CLON0.5T PO; -HYDR12.56 PO; +HYDR12.59 PO
[2023-08-13 09:29] LABS: Basophils # (auto) 0 10 ^3/uL (0-0.2); Basophils % (auto) 0.4 % (0.0-2.0); Eosinophils # (auto) 0.2 10 ^3/uL (0-0.8); Hemoglobin 14.3 g/dL (12.2-16.2); Lymphocytes % (auto) 25.4 % (10.0-50.0); Mean Corpuscular Hemoglobin 33.7 pg (28.0-32.0); Mean Corpuscular Hgb Conc. 33.2 g/dL (32.0-36.0); Mean Corpuscular Volume 101.6 fL (80.0-100.0); Monocytes # (auto) 0.5 10 ^3/uL (0-1.3); Monocytes % (auto) 6.5 % (0.0-12.0); Neutrophils # (auto) 5.3 10 ^3/uL (1.6-8.6); Neutrophils % (auto) 65.7 % (37.0-80.0); Red Blood Cells 4.24 10^6/uL (4.0-5.20); Red Cell Distribution Width 13.7 % (11.8-14.3)
[2023-08-13 09:52] LABS: Urine Bacteria NONE SEEN /hpf (None Seen); Urine Blood Negative /uL (Negative); Urine Clarity Clear (Clear); Urine Color Yellow (Yellow); Urine Hyaline Cast FEW /lpf (0 - 2); Urine Protein, UAD Negative (Negative); Urine Urobilinogen Normal (Negative); Urine WBC 2 /hpf (0 - 5); Urine pH 6.5 (5.0-8.0)
[2023-08-13 10:12] LABS: Alanine Aminotransferase 40 U/L (7-40); Albumin 4.7 g/dL (3.2-4.8); Alkaline Phosphatase 53 U/L (46-116); Anion Gap 5 (5-15); Aspartate Aminotransferase 39 U/L (13-40); BUN/Creatinine Ratio 24.1 (10.0-20.0); Bilirubin, Total 0.6 mg/dL (0.2-1.0); Blood Urea Nitrogen 27 mg/dL (9-23); Calcium 9.9 mg/dL (8.5-10.1); Carbon Dioxide 33 mmol/L (20-30); Chloride 101 mmol/L (98-107); Cholesterol 195 mg/dL (< 200); Glucose 116 mg/dL (74-106); HDL Cholesterol 90 mg/dL (40-59); LDL Cholesterol 92 mg/dL (< 100); Potassium 4.1 mmol/L (3.5-5.1); Sodium 139 mmol/L (136-145); Total Protein 6.9 g/dL (5.7-8.2); Triglycerides 105 mg/dL (< 150)
== END | disposition home or self-care (01) ==
LOC: LAB 09:02
PROVIDERS: ATTEND Nurse Practitioner
DX: I10 Essential (primary) hypertension (principal); E78.5 Hyperlipidemia, unspecified; Z79.899 Other long term (current) drug therapy
CPT/HCPCS: 36415; 80053; 80061; 81001; 83036; 84443; 85025

== ENCOUNTER → 2023-11-07 | Outpatient (CLI) | payer MEDICARE ==
[2023-11-07 09:28] LABS: Anion Gap 3 (5-15); Carbon Dioxide 29 mmol/L (20-30); Chloride 106 mmol/L (98-107); Potassium 4.1 mmol/L (3.5-5.1); Sodium 138 mmol/L (136-145)
[2023-11-07 09:34] LABS: BUN/Creatinine Ratio 31.9 (10.0-20.0); Blood Urea Nitrogen 36 mg/dL (9-23); Glucose 130 mg/dL (74-106)
== END | disposition home or self-care (01) ==
LOC: LAB 08:50
PROVIDERS: ATTEND Internal Medicine Rheumatology
DX: M81.0 Age-related osteoporosis without current pathological fracture (principal); E55.9 Vitamin D deficiency, unspecified
CPT/HCPCS: 36415; 80048; 82306

== ENCOUNTER 2023-12-20 09:42 | Emergency (ER) | payer MEDICARE ==
[~2023-12-20] VITALS: Ht 157.5 cm; Wt 50.9 kg
[2023-12-20 10:24] VITALS: PULSE 62; RESP 16; TEMP 98.3; O2SAT 91
[2023-12-20 11:41] LABS: Basophils # (auto) 0 10 ^3/uL (0-0.2); Basophils % (auto) 0.3 % (0.0-2.0); Eosinophils # (auto) 0.1 10 ^3/uL (0-0.8); Eosinophils % (auto) 0.9 % (0.0-7.0); Hematocrit 38.2 % (36.0-46.0); Hemoglobin 12.7 g/dL (12.2-16.2); Lymphocytes # (auto) 1.5 10 ^3/uL (0.4-5.4); Lymphocytes % (auto) 14.9 % (10.0-50.0); Mean Corpuscular Hemoglobin 33.7 pg (28.0-32.0); Mean Corpuscular Hgb Conc. 33.3 g/dL (32.0-36.0); Mean Corpuscular Volume 101.3 fL (80.0-100.0); Monocytes # (auto) 0.7 10 ^3/uL (0-1.3); Monocytes % (auto) 6.9 % (0.0-12.0); Nucleated Red Blood Cells % 0.2 %; Red Blood Cells 3.77 10^6/uL (4.0-5.20); Red Cell Distribution Width 14.1 % (11.8-14.3); White Blood Cell 10.4 10^3/uL (4.4-10.8)
[2023-12-20 11:51] LABS: Alanine Aminotransferase 46 U/L (7-40); Albumin 4.3 g/dL (3.2-4.8); Alkaline Phosphatase 57 U/L (46-116); Anion Gap 6 (5-15); Aspartate Aminotransferase 48 U/L (13-40); BUN/Creatinine Ratio 24.8 (10.0-20.0); Bilirubin, Total 0.4 mg/dL (0.2-1.0); Blood Urea Nitrogen 26 mg/dL (9-23); Calcium 9.7 mg/dL (8.7-10.4); Carbon Dioxide 28 mmol/L (20-30); Chloride 103 mmol/L (98-107); Glucose 100 mg/dL (74-106); Potassium 4.6 mmol/L (3.5-5.1); Sodium 137 mmol/L (136-145); Total Protein 6.5 g/dL (5.7-8.2)
[2023-12-20 12:13] VITALS: BP 133/66; PULSE 60; RESP 18; O2SAT 92
[2023-12-20] MEDS ORDERED: CEPH500T PO (12:51)
[2023-12-20] MEDS ORDERED: BACDST PO (12:51)
[2023-12-20] MEDS ORDERED: SULFAMETHOX W/TRIMETH(800/160MG) DS TAB PO ONE (13:00)
[2023-12-20] MEDS ORDERED: CEPHALEXIN 250 MG CAP PO ONE (13:00)
== END 2023-12-20 14:01 | disposition home or self-care (01) ==
LOC: ER 09:42
DX: L03.116 Cellulitis of left lower limb (principal); J44.9 Chronic obstructive pulmonary disease, unspecified; R22.41 Localized swelling, mass and lump, right lower limb; K21.9 Gastro-esophageal reflux disease without esophagitis; I10 Essential (primary) hypertension; Z90.49 Acquired absence of other specified parts of digestive tract; Z90.710 Acquired absence of both cervix and uterus; Z87.891 Personal history of nicotine dependence
CPT/HCPCS: 36415; 80053; 83605; 83880; 85025; 85379; 93971

== ENCOUNTER → 2024-06-20 | Outpatient (CLI) | payer MEDICARE ==
[~2024-06-20] MED LIST changes: +BACDST PO; +CEPH500T PO
[2024-06-20 16:05] LABS: Basophils # (auto) 0 10 ^3/uL (0-0.2); Basophils % (auto) 0.4 % (0.0-2.0); Eosinophils # (auto) 0.3 10 ^3/uL (0-0.8); Eosinophils % (auto) 3.3 % (0.0-7.0); Hematocrit 43.4 % (36.0-46.0); Lymphocytes # (auto) 1.9 10 ^3/uL (0.4-5.4); Lymphocytes % (auto) 21.1 % (10.0-50.0); Mean Corpuscular Hemoglobin 31.4 pg (28.0-32.0); Mean Corpuscular Hgb Conc. 32.3 g/dL (32.0-36.0); Mean Corpuscular Volume 97.3 fL (80.0-100.0); Monocytes # (auto) 0.9 10 ^3/uL (0-1.3); Monocytes % (auto) 10.2 % (0.0-12.0); Platelet Count (auto) 321 10^3/uL (140-450); Red Blood Cells 4.46 10^6/uL (4.0-5.20); Red Cell Distribution Width 15.2 % (11.8-14.3); White Blood Cell 9.2 10^3/uL (4.4-10.8)
[2024-06-20 16:37] LABS: Alanine Aminotransferase 24 U/L (7-40); Albumin 4.5 g/dL (3.2-4.8); Alkaline Phosphatase 91 U/L (46-116); Anion Gap 5 (5-15); Aspartate Aminotransferase 34 U/L (13-40); BUN/Creatinine Ratio 32.8 (10.0-20.0); Calcium 9.8 mg/dL (8.7-10.4); Carbon Dioxide 31 mmol/L (20-31); Chloride 101 mmol/L (98-107); Glucose 94 mg/dL (74-106); Potassium 5.1 mmol/L (3.5-5.1); Sodium 137 mmol/L (136-145)
[2024-06-20 16:38] LABS: Total Protein 7.2 g/dL (5.7-8.2)
[2024-06-20 16:41] LABS: Bilirubin, Total 0.3 mg/dL (0.2-1.0); Blood Urea Nitrogen 42 mg/dL (9-23)
== END | disposition home or self-care (01) ==
LOC: LAB 15:46
PROVIDERS: ATTEND Internal Medicine Rheumatology
DX: M81.8 Other osteoporosis without current pathological fracture (principal); E55.9 Vitamin D deficiency, unspecified; Z79.899 Other long term (current) drug therapy
CPT/HCPCS: 36415; 80053; 82306; 85025

== ENCOUNTER 2024-11-17 10:12 | Outpatient (CLI) | payer MEDICARE ==
[~2024-11-17 10:12] MED LIST changes: +CEFD300C2 PO; +CITA-77 PO
[2024-11-17 11:23] LABS: Basophils # (auto) 0 10 ^3/uL (0-0.2); Basophils % (auto) 0.2 % (0.0-2.0); Eosinophils # (auto) 0.4 10 ^3/uL (0-0.8); Eosinophils % (auto) 4.6 % (0.0-7.0); Hematocrit 39.1 % (36.0-46.0); Lymphocytes # (auto) 2.1 10 ^3/uL (0.4-5.4); Lymphocytes % (auto) 22.5 % (10.0-50.0); Mean Corpuscular Hemoglobin 32.9 pg (28.0-32.0); Mean Corpuscular Hgb Conc. 33.4 g/dL (32.0-36.0); Mean Corpuscular Volume 98.6 fL (80.0-100.0); Monocytes # (auto) 0.8 10 ^3/uL (0-1.3); Monocytes % (auto) 8.9 % (0.0-12.0); Neutrophils % (auto) 63.8 % (37.0-80.0); Nucleated Red Blood Cells % 0.1 %; Platelet Count (auto) 257 10^3/uL (140-450); Red Blood Cells 3.97 10^6/uL (4.0-5.20); Red Cell Distribution Width 16.7 % (11.8-14.3); White Blood Cell 9.4 10^3/uL (4.4-10.8)
[2024-11-17 11:38] LABS: Alanine Aminotransferase 14 U/L (7-40); Alkaline Phosphatase 66 U/L (46-116); Anion Gap 7 (5-15); BUN/Creatinine Ratio 30.3 (10.0-20.0); Blood Urea Nitrogen 37 mg/dL (9-23); Calcium 10.5 mg/dL (8.7-10.4); Carbon Dioxide 32 mmol/L (20-31); Chloride 99 mmol/L (98-107); Glucose 93 mg/dL (74-106); Potassium 5.1 mmol/L (3.5-5.1); Sodium 138 mmol/L (136-145); Total Protein 7.2 g/dL (5.7-8.2)
[2024-11-17 11:39] LABS: Albumin 4.5 g/dL (3.2-4.8); Aspartate Aminotransferase 28 U/L (<34)
[2024-11-17 11:48] LABS: Bilirubin, Total 0.3 mg/dL (0.2-1.0)
== END 2024-11-17 17:00 | disposition home or self-care (01) ==
LOC: LAB 10:12
PROVIDERS: ATTEND Internal Medicine Rheumatology
DX: E55.9 Vitamin D deficiency, unspecified (principal); M81.8 Other osteoporosis without current pathological fracture; Z79.899 Other long term (current) drug therapy
CPT/HCPCS: 36415; 80053; 82306; 85025